=== PATIENT | female | born 1995 | race Caucasian/White ===

== ENCOUNTER 2017-02-07 13:42 | Emergency (ER) | payer OTHER ==
[~2017-02-07] VITALS: Ht 180.3 cm; Wt 91.4 kg
[2017-02-07 13:47] VITALS: TEMP 36.9; Ht 180.3 cm; Wt 91.4 kg
--- NOTE | 2017-02-07 14:32 | DIAGNOSTIC IMAGING REPORT ---
CT SCAN OF THE BRAIN WITHOUT IV CONTRAST CLINICAL HISTORY: Fall with headache. COMPARISON STUDY: No priors. TECHNIQUE: Unenhanced axial CT scan of the brain is performed from the vertex to the skull base. Automated dose control exposure was utilized. CT DOSE: 537.48 mGy.cm FINDINGS: Brain parenchyma: The brain parenchyma is normal in appearance. There is no hemorrhage, mass effect, or evidence of acute territorial ischemia by CT criteria. Moreland-white matter is preserved. No extra-axial fluid collection is seen. Ventricles, sulci, cisterns: Normal in configuration. Intracranial vasculature: The visualized intracranial vasculature at the skull base is normal in appearance. Calvarium: There is no depressed calvarial fracture. Sinuses and mastoids: The visualized paranasal sinuses are clear. The mastoid air cells are well pneumatized. Orbits: The bony orbits are grossly intact. IMPRESSION: No acute intracranial abnormality. Electronically signed by: Marcell Guevara M.D. 02/07/2017 2:31 PM Dictated Date/Time: 02/07/2017 2:29 PM
--- NOTE | 2017-02-07 14:52 | DIAGNOSTIC IMAGING REPORT ---
LUMBAR SPINE 5 VIEWS HISTORY: Low back tenderness and pain s/p fall COMPARISON: None. FINDINGS: There is no fracture. No subluxation. Disc spaces are preserved. The sacrum is intact. IMPRESSION: No fracture or subluxation within the lumbar spine. Electronically signed by: Trevor Negro M.D. 02/07/2017 2:51 PM Dictated Date/Time: 02/07/2017 2:48 PM
--- NOTE | 2017-02-07 15:11 | EMERGENCY ROOM VISIT NOTE ---
History First contact with patient: 14:00 Chief Complaint: HEAD INJURY (MINOR) Stated Complaint: CONCUSSION SX-WORSENING, SHARP PAIN IN HEAD/EAR,N History of Present Illness The patient is a 21 year old female who presents to the Emergency Room via private vehicle with complaints of "concussion symptoms worsening, sharp pain in head/ear". Patient states that Sunday evening she was at her apartment, walking to her car when he began to smell. She states that she attempted to navigate the steps and slipped striking her left gluteal region causing her head to with to the side and then back upright. She then developed a headache on the left side as well as right-sided neck pain. She states that the headache persisted, and she felt out of it and notes that felt similar to previous concussions. She states she went to [employer] press on Sunday who told her to take a few days off of class but it has worsened to include Lasix sensitivity, sound sensitivity and nausea. The patient states that last night sharp pains developed all through her head that felt like a pinching sensation. She also developed pain in the left ear. She states the pain will come and go and is not associated with nausea. She states that the neck pain does appear to be improving as well as ear pain however the headache is worsening. She also points to the left hip and low back as locations of the pain. She denies any tingling in the arms or legs, bowel or bladder incontinence, numbness or tingling in genital region, chest pain, shortness of breath, fevers , chills, chance of . Review of Systems A complete 10-point Review of Systems was discussed with the patient, with pertinent positives and negatives listed in the History of Present Illness. All remaining Review of Systems questions can be considered negative unless otherwise specified. Past Medical/Surgical History Tonsillectomy, adenoidectomy, 3 previous concussions since 2013, back and knee pain, migraines Family History Unremarkable Social History Smoking Status: Never Smoker Social History: At school, the patient lives with roommates and at home she lives with her parents. She denies tobacco use and admits to alcohol use. Current/Historical Medications No Active Prescriptions or Reported Meds Allergies Uncoded Allergies: NO KNOWN ALLERGIES (Allergy, Mild, ., 02/07/17) Physical Exam Vital Signs Date Time Temp Pulse Resp B/P Pulse Ox O2 Delivery O2 Flow Rate FiO2 02/07/17 15:23 68 16 115/72 99 Room Air 02/07/17 13:47 36.9 70 16 137/79 98 Room Air Physical Exam VITAL SIGNS - Vital signs and nursing notes were reviewed. Patient is afebrile , normotensive, non-tachycardic and saturating well on room air 98%. GENERAL -21-year-old female appearing her stated age. Communicates well with provider and answers questions appropriately. SKIN - Gross examination of the entire body surface demonstrates no lacerations to the body. There is no ecchymosis noted to the body. HEAD - Normocephalic, Atraumatic. No Skinner's Sign or Raccoon's Eyes. No depressed skull fractures palpable. EYES - PERRL with EOMI bilaterally. Without subconjunctival hemorrhage. Palpebral conjunctiva pink and moist with no injection. EARS - No deformities of external structures noted on gross examination bilaterally. No hemotympanum present. No tympanic perforation noted. Handle of malleus, umbo, cone of light, pars tensa/flaccid all easily visualized. NOSE - Midline and without cyanosis. No epistaxis or clear watery discharge noted. Septum midline without deviation. No septal hematoma noted. No overlying ecchymosis noted. MOUTH/OROPHARYNX - Without perioral cyanosis. Tongue midline with equal elevation of palate bilaterally. No blood noted in the oropharynx. No tonsillar hypertrophy, erythema, or exudates noted. No dental fractures noted. NECK - no tenderness to palpation over the cervical spinous processes. No cervical paraspinal muscle tenderness noted. There is slight tenderness to palpation overlying the right lateral neck musculature. LUNGS - Chest wall symmetric without accessory muscle use, intercostals retractions, or central cyanosis. Normal vesicular breath sounds CTA B/L. No wheezes, rales, or rhonchi appreciated. CARDIAC - RRR with S1/S2. No murmur, rubs, or gallops appreciated. MUSCULOSKELETAL: There is tenderness overlying the lumbar spinous processes. EXTREMITIES - No gross deformities noted of the extremities. No tenderness to palpation of the extremities. FROM with no tremors, fasciculations, or clonus noted on PROM throughout. +5/5 strength noted in UE/LE bilaterally. Bicipital reflexes intact bilaterally. NEUROLOGIC - Cranial nerves II through XII grossly intact. Sensory intact to light touch throughout. Patellar reflexes +2/4. Patient able to perform rapid alternating movements appropriately. PSYCH - A&Ox3 and cooperates fully with examiner. Pt is very pleasant and interacts well with examiner. Medical Decision & Procedures ER Provider Diagnostic Interpretation: CT SCAN OF THE BRAIN WITHOUT IV CONTRAST CLINICAL HISTORY: Fall with headache. COMPARISON STUDY: No priors. TECHNIQUE: Unenhanced axial CT scan of the brain is performed from the vertex to the skull base. Automated dose control exposure was utilized. CT DOSE: 537.48 mGy.cm FINDINGS: Brain parenchyma: The brain parenchyma is normal in appearance. There is no hemorrhage, mass effect, or evidence of acute territorial ischemia by CT criteria. Moreland-white matter is preserved. No extra-axial fluid collection is seen. Ventricles, sulci, cisterns: Normal in configuration. Intracranial vasculature: The visualized intracranial vasculature at the skull base is normal in appearance. Calvarium: There is no depressed calvarial fracture. Sinuses and mastoids: The visualized paranasal sinuses are clear. The mastoid air cells are well pneumatized. Orbits: The bony orbits are grossly intact. IMPRESSION: No acute intracranial abnormality. Electronically signed by: Marcell Guevara M.D. 02/07/2017 2:31 PM Dictated Date/Time: 02/07/2017 2:29 PM LUMBAR SPINE 5 VIEWS HISTORY: Low back tenderness and pain s/p fall COMPARISON: None. FINDINGS: There is no fracture. No subluxation. Disc spaces are preserved. The sacrum is intact. IMPRESSION: No fracture or subluxation within the lumbar spine. Electronically signed by: Trevor Negro M.D. 02/07/2017 2:51 PM Dictated Date/Time: 02/07/2017 2:48 PM Medical Decision The patient was seen and evaluated as above. The patient appears to have symptoms suggestive of a concussion however due to her worsening of the headache benefits versus risk was discussed with the patient's with the ultimate decision to obtain a CT scan of the head and lumbar radiographs. Results of these as above. Patient was clinically appearing well without any neurologic deficits. No evidence of infection in the ears. No C-spine tenderness. The patient does converse well and I believe is able to follow-up in the outpatient setting. She'll be given 3 days excuse from classes for [facility] for further evaluation and management. I do not suspect any emergent or acute nature to her symptoms at this time. She was educated upon management of her concussion and neck strain, she was also educated upon management of the back pain. I do not suspect any acute fractures. She was educated upon worrisome symptoms which to return, had questions answered prior to discharge, and was discharged home in good condition. In the evaluation and treatment of this patient, the following differential diagnoses were considered: Concussion, Contrecoup Injury, Brain Tumor, Depression, Encephalitis, Hypothyroidism, Meningitis, CVA, TIA, Migraine, Cluster Headache, Intracranial Abnormality, Intracranial Hemorrhage, Subdural Hematoma, Subarachnoid Hemorrhage, Hydrocephalus, cervical strain, low back pain , among others. Impression Primary Impression: Closed head injury Additional Impressions: Concussion Low back pain Neck muscle strain Departure Information Dispostion Home / Self-Care Condition GOOD Prescriptions No Active Prescriptions or Reported Meds Referrals [facility] (PCP) Forms HOME CARE DOCUMENTATION FORM, IMPORTANT VISIT INFORMATION Patient Instructions My [facility] Additional Instructions You have been treated in the Emergency Department for a Closed Head Injury/ concussion/neck strain/ear pain. . CT Scan of your head/brain demonstrated no acute bleeding or other abnormalities. This does not completely rule out the risk for future damage to the brain. For pain control, you can use the following [id number] medicines (if >12 yo): - Regular strength (325mg/tab) Tylenol (acetaminophen) 2 tabs every 4-6 hours as needed. Do not exceed 12 tablets in a 24 hour period. Avoid taking more than 4 grams (4000 mg) of Tylenol per day. This includes any other sources of acetaminophen you may take on a regular basis. - Regular strength (200 mg/tab) Advil (ibuprofen) 1-2 tabs every 4-6 hours as needed. Do not exceed a dose of 3200 mg per day. You should relax in a quiet, dark place for the rest of the day. Avoid any possible triggers including: cigarette smoke, caffeine, nicotine, chocolate, wine, beer, loud noises or music, or bright lights. You should schedule a follow-up appointment as soon as possible with [facility] for further evaluation and management of your injuries. Return to the Emergency Department if your current symptoms worsen despite treatment course outlined above, or if you develop any of the following symptoms : intractable pain despite aforementioned treatment course, visual disturbances , loss of vision, unilateral weakness or facial drooping, slurring of speech, loss of coordination, or loss of consciousness. Please return to the emergency department with any new/concerning symptoms. Problem Qualifiers Primary Impression: Closed head injury Encounter type: initial encounter Qualified Codes: S09.90XA - Unspecified injury of head, initial encounter Additional Impressions: Concussion Encounter type: initial encounter Loss of consciousness presence/duration: without LOC Qualified Codes: S06.0X0A - Concussion without loss of consciousness, initial encounter Low back pain Chronicity: acute Back pain laterality: midline Sciatica presence: without sciatica Qualified Codes: M54.5 - Low back pain Neck muscle strain Encounter type: initial encounter Qualified Codes: S16.1XXA - Strain of muscle, fascia and tendon at neck level, initial encounter
[2017-02-07 15:23] VITALS: BP 115/72; PULSE 68; O2SAT 99
== END 2017-02-07 15:37 | disposition home or self-care (01) ==
LOC: C.EDB 13:45 → C.EDD 15:37
DX: S09.90XA Unspecified injury of head, initial encounter (principal); S06.0X9A Concussion with loss of consciousness of unspecified duration, initial encounter; W01.0XXA Fall on same level from slipping, tripping and stumbling without subsequent striking against object, initial encounter; Z87.820 Personal history of traumatic brain injury